=== PATIENT | female | born 1965 | race Caucasian/White ===

== ENCOUNTER 2019-11-20 00:16 | Day surgery (SDC) | payer BC, SELFPAY ==
[2019-11-19 13:19] VITALS: BMI 31.0
--- NOTE | 2019-11-20 07:23 | P.PNAN_ITS ---
Anes - Initial Pre Proc Eval Procedure: Operation Date: 11/20/19 08:00 Proposed Procedures p Esophagogastroduodenoscopy & Colonoscopy - Jonathan Cody MD Date/Time: 11/20/19 07:23 Surgeon: Jonathan Cody MD Pre Op Diagnosis: iron deficiency anemia Patient Data Age: 54 Gender: F Height: 1.63 m Weight: 82 kg Allergies Allergy/AdvReac Type Severity Reaction Status Date / Time No Known Allergies Allergy Verified 11/19/19 13:16 Home Medications Medication Instructions Recorded Confirmed Type lisinopril 20 mg PO DAILY 11/19/19 11/19/19 History multivit with min-folic acid 0.4 mg PO DAILY 11/19/19 11/19/19 History [Adult One Daily Multivitamin] omeprazole 40 mg PO DAILY 11/19/19 11/19/19 History Patient hx anesthesia problems: none Family hx anesthesia problems: none [facility] Past Medical History Medical History (Updated 11/19/19 @ 14:13 by Davi Sanchez DO) Anemia Fibromyalgia Hypertension Anes - Eval Final PreProcedure Day of Procedure 11/20/19 07:23 Patient weight: obese Heart: regular rate and rhythm Lungs: clear to auscultation and normal air movement Airway: Mallampati scale class II Neurological: alert and oriented Last oral intake: >/= 8 hours ASA classification: III Emergent: no Anesthetic plan: proceed Anesthesia type and monitoring: general GIVS and standard monitoring Informed Consent: The patient's anesthetic plan and its attendant risks and benefits were discussed with the patient/family/POA. Questions were solicited and answers provided to the satisfaction of the patient/family/POA.
[2019-11-20] MEDS: LACTATED RINGERS 1,000 ML 150 ML IV CONT (07:24)
[2019-11-20 07:30] VITALS: BP 121/67; PULSE 69; RESP 16; TEMP 36.3; O2SAT 97; BMI 31.2
--- NOTE | 2019-11-20 07:49 | WPDGICN ---
Assessment and Plan Additional Plan This is a 54-year-old white female patient seen in evaluation at the request of Dr. Garcias. patient recently found to have iron deficiency anemia on routine lab testing. Her current weight appetite bowel movements are normal. She denies any blood in her stools. She has had no bruising or bleeding elsewhere. She denies abdominal pain her bowel habits are regular. She does have a history of a bleeding peptic ulcer in 2011 attributed to nonsteroidal anti-inflammatory agents. She removed ports no menses for 2 years. Past medical history is significant for fibromyalgia and hypertension. Current medications include omeprazole that she has taken since her history of peptic ulcer disease in 2011. She is on ferrous sulfate, lisinopril, Tizanidine. physical exam reveals patient to be alert. Vital signs stable. HEENT exam unremarkable. She is anicteric. Lungs are clear to auscultation and percussion. Heart is without murmur or extra sounds. Abdominal exam bowel sounds are present soft nontender with no organomegaly. Digital external rectal exam normal. Laboratory tests reveal hemoglobin 9.1, hematocrit 31.7, MCV 69, iron of 44, TIBC 499 with 9% saturation. Impression 1. Iron deficiency anemia. 2. History of peptic ulcer disease. Plan is for colonoscopy an EGD to assess for possible GI source of anemia. Iron replacement is encouraged. Further recommendations will be given after endoscopy. GI Consult Note Consult date/time: 11/20/19 07:49 HPI: Brittanie Overton is a 54 year old female [facility] Past Medical History Medical History (Updated 11/19/19 @ 14:13 by Davi Sanchez DO) Anemia Fibromyalgia Hypertension Meds Home Medications and Allergies Home Medications Medication Instructions Recorded Confirmed Type lisinopril 20 mg PO DAILY 11/19/19 11/20/19 History multivit with min-folic acid 0.4 mg PO DAILY 11/19/19 11/19/19 History [Adult One Daily Multivitamin] omeprazole 40 mg PO DAILY 11/19/19 11/20/19 History iron 10 mg PO DAILY 11/20/19 11/20/19 History tizanidine 2 mg PO HS PRN 11/20/19 11/20/19 History Allergies Allergy/AdvReac Type Severity Reaction Status Date / Time No Known Allergies Allergy Verified 11/20/19 07:25 Vital Signs Vital Signs - 24 hr 11/20/19 07:30 Temperature 36.3 C L Pulse Rate 69 Respiratory Rate 16 Blood Pressure 121/67 Pulse Oximetry 97
[2019-11-20 08:23] VITALS: BP 100/50; PULSE 71; RESP 16; O2SAT 98
[2019-11-20 08:33] VITALS: BP 109/55; PULSE 60; RESP 16; O2SAT 100
[2019-11-20 08:43] VITALS: BP 117/71; PULSE 67; RESP 16; O2SAT 100
== END 2019-11-20 08:55 | disposition home or self-care (01) ==
PROVIDERS: PCP Emergency Medicine; Visit Provider Internal Medicine Gastroenterology
PROC: 0DJ08ZZ Inspection of Upper Intestinal Tract, Via Natural or Artificial Opening Endoscopic (ICD-10-PCS; CPT 43235; principal; 2019-11-20 08:00)
DX: D50.9 Iron deficiency anemia, unspecified (principal); K64.8 Other hemorrhoids; Z87.11 Personal history of peptic ulcer disease; I10 Essential (primary) hypertension; M79.7 Fibromyalgia; E66.9 Obesity, unspecified; Z68.31 Body mass index [BMI] 31.0-31.9, adult
CPT/HCPCS: 45378; 43235; J2704; J7120

== ENCOUNTER → 2019-12-18 14:14 | Outpatient (CLI) | payer BC, SELFPAY ==
--- NOTE | ~2019-12-18 | XR_ITS ---
EXAMINATION: XR chest 2V EXAM DATE: 12/18/2019 14:33 INDICATION: Cough. TECHNIQUE: Frontal and lateral projections of the chest obtained and reviewed. There is no prior cassidy dy for comparison. FINDINGS: The lungs are clear. There are no pleural effusions. The cardiomediastinal silhouette is within normal limits. There is no pneumothorax suspected. The bones and soft tissues are unremarkab le. IMPRESSION: No acute cardiopulmonary findings. Reviewed, dictated and finalized at location A.
== END ==
PROVIDERS: PCP Emergency Medicine; Visit Provider Emergency Medicine
DX: R05 Cough (principal)
CPT/HCPCS: 71046

== ENCOUNTER 2021-02-11 08:35 | Outpatient (CLI) | payer SELFPAY ==
--- NOTE | ~2021-02-11 | US_ITS ---
EXAMINATION: US right upper quadrant DATE: 02/11/2021 09:04 INDICATION: Abnormal liver function tests. TECHNIQUE: Multiple grayscale and Doppler ultrasound images of the abdomen were obtained. COMPARISON: None FINDINGS: The visualized portions of the head, body, and tail of the pancreas are normal. The liver i s normal without focal lesion. No liver surface nodularity. There is normal flow in main portal vein. The gallbladder is normal in size. No gallstones or gallbladder wall thickening. There is no sonogra phic Veloz sign. The common duct is normal and measures 4 mm. IMPRESSION: 1. Normal right upper quadrant ultrasound. Reviewed, dictated and finalized at location A.
== END 2021-02-11 08:36 | disposition home or self-care (01) ==
PROVIDERS: PCP Emergency Medicine; Visit Provider Emergency Medicine
DX: R74.8 Abnormal levels of other serum enzymes (principal)
CPT/HCPCS: 76705

== ENCOUNTER 2022-06-15 15:58 | Emergency (ER) | payer OTHER, SELFPAY ==
[2022-06-15 16:11] VITALS: BP 170/81; PULSE 87; RESP 20; TEMP 36.7; O2SAT 96
--- NOTE | 2022-06-15 17:32 | ED.BACK ---
HPI - Back Pain/Injury General Chief Complaint: Back Pain/Injury Stated Complaint: back pain Time Seen by Provider: 06/15/22 17:21 Source: RN notes reviewed History of Present Illness HPI Narrative: Patient presents emergency room from home for back pain. Patient she has a history of chronic back pain and has had had work-ups in the past including MRI states that yesterday she was bending over the bed trying to put on a sheet when she strained her back she states since that time she had pain in bilateral lower back that goes into her legs states that the pain does shoot down her right leg she denies any fevers or chills abdominal pain numbness or tingling in the extremities bowel or bladder incontinence or any other symptoms. States that she tried taking ibuprofen and Tylenol home with no relief her last dose ibuprofen at 6 AM this morning Related Data Home Medications Medication Instructions Recorded Confirmed lisinopril 20 mg tablet 20 mg PO DAILY 11/19/19 11/20/19 multivitamin with minerals-folic 0.4 mg PO DAILY 11/19/19 11/19/19 acid 0.4 mg tablet (Adult One Daily Multivitamin) omeprazole 40 mg capsule,delayed 40 mg PO DAILY 11/19/19 11/20/19 release iron 10 mg PO DAILY 11/20/19 11/20/19 tizanidine 2 mg capsule 2 mg PO HS PRN FIBROMYALGIA 11/20/19 11/20/19 Allergies Allergy/AdvReac Type Severity Reaction Status Date / Time No Known Allergies Allergy Verified 11/20/19 07:25 Review of Systems Review of Systems: Gen.: Denies fevers or chills ENT: Denies congestion Respiratory: Denies shortness of breath or cough CV: Denies chest pain or palpitations GI: Denies abdominal pain nausea, emesis or diarrhea denies bowel or bladder incontinence Musculoskeletal: See HPI Neuro: Denies numbness, tingling, weakness or focal weakness Skin: Denies rash Except as documented, all other systems reviewed and negative PMFSH Past Medical History Medical History Anemia Fibromyalgia Hypertension Social History Social History (Updated 06/15/22 @ 17:33 by Narayan Arizmendi DO) Smoking status: Never smoker Exam Narrative: APPEARANCE: No acute distress, nontoxic, resting in bed Eyes: EOMI HEENT: Normocephalic, atraumatic, CV: Regular rate and rhythm without murmur RESPIRATORY: No respiratory distress. Clear to auscultation bilaterally. Abdomen: Soft and nontender, no rebound or guarding MUSCULOSKELETAl: Moves all extremities, no clubbing cyanosis or edema Back: No midline lumbar tenderness to palpation or step-off, tender to palpation over bilateral paravertebral muscles L3-5 , pain increased with forward flexion NEURO: Awake and alert. Following commands, speech normal, no focal deficits, muscle strength 5 out of 5 bilateral lower extremities, bilateral patellar reflex 2+ SKIN:: Warm, dry. Normal Color no rash or lesions Course Course Emergency Course: Discussed with patient results of workup and diagnosis. Discussed need for follow-up with primary care, proper use of medication, and reasons to return to the emergency department. Patient understands and agrees to current treatment plan Vital Signs Vital signs: Vital Signs Temperature 98.0 F 06/15/22 16:11 Pulse Rate 87 06/15/22 16:11 Respiratory Rate 20 06/15/22 16:11 Blood Pressure 170/81 H 06/15/22 16:11 Pulse Oximetry 96 06/15/22 16:11 Oxygen Delivery Room Air 06/15/22 16:11 Temperature 98.0 F 06/15/22 16:11 Pulse Rate 87 06/15/22 16:11 Respiratory Rate 20 06/15/22 16:11 Blood Pressure 170/81 H 06/15/22 16:11 Pulse Oximetry 96 06/15/22 16:11 Oxygen Delivery Room Air 06/15/22 16:11 MDM - Back Pain/Injury MDM Narrative Medical decision making narrative: Patient?s pain is positional and localized to back without signs of cord compression or cauda equina. Normal nuerologic exams. No fever noted and no significant risk factors for osteomyelitis or spina
[2022-06-15] MEDS: IBUPROFEN 600 MG TABLET PO (17:39)
[2022-06-15] MEDS: CYCLOBENZAPRINE HCL 10 MG TABLET PO (17:39)
[2022-06-15] MEDS: predniSONE 20 MG TABLET 60 MG PO (17:39)
== END 2022-06-15 17:55 | disposition home or self-care (01) ==
LOC: ANHED 17:48
PROVIDERS: Emergency Provider Emergency Medicine; PCP Emergency Medicine
DX: M54.50 Low back pain, unspecified (principal); I10 Essential (primary) hypertension; D64.9 Anemia, unspecified; M79.7 Fibromyalgia
CPT/HCPCS: 99283; A9270; J7512